=== PATIENT | female | born 1965 | race African-American/Black ===

== ENCOUNTER 2022-11-21 21:09 | Inpatient (IN) | payer MEDICARE ==
[~2022-11-21] VITALS: Ht 165.1 cm; Wt 117.9 kg
[2022-11-21] MEDS ORDERED: ACETAMINOPHEN 325 MG TAB PO STA (21:13)
[2022-11-21] MEDS ORDERED: SODIUM CHLORIDE 0.9% 1000ML 1,000 ML IV SCH (21:15)
[2022-11-21] MEDS ORDERED: ACETAMINOPHEN 1000 MG/100 ML IV STA (21:26)
[2022-11-21 21:55] LABS: BASOPHILS # (AUTO) 0.1 (0.0-0.1); BASOPHILS % 0.6 % (0.0-1.0); EOSINOPHILS # (AUTO) 0.3 (0.0-0.4); EOSINOPHILS % 1.7 % (0.0-6.0); HEMATOCRIT 30.9 % (34.2-44.1); LYMPHOCYTES # (AUTO) 2.3 (1.0-3.2); LYMPHOCYTES % 13.6 % (18.0-39.1); MEAN CORPUSCULAR HGB CONC 35.6 g/dL (31-35); MEAN CORPUSCULAR VOLUME 84.2 fL (81-99); MONOCYTES # (AUTO) 1.1 (0.2-0.8); MONOCYTES % 6.5 % (4.4-11.3); NEUTROPHILS # (AUTO) 12.8 (2.1-6.9); NEUTROPHILS % 77.2 % (38.7-80.0); PLATELET COUNT 243 x10e3/uL (140-360); RED BLOOD COUNT 3.67 x10e6/uL (3.6-5.1); RED CELL DISTRIBUTION WIDTH 13.6 % (11.7-14.4)
[2022-11-21] MEDS ORDERED: SODIUM CHLORIDE 0.9% 1000ML 1,000 ML IV ONE (22:00)
[2022-11-21 22:04] LABS: ALANINE AMINOTRANSFERASE 55 IU/L (0-55); ALBUMIN 3.1 g/dL (3.5-5.0); ALBUMIN/GLOBULIN RATIO 0.8 (0.8-2.0); ALKALINE PHOSPHATASE 200 IU/L (40-150); ANION GAP 15.1 mmol/L (8-16); BLOOD UREA NITROGEN 23 mg/dL (7-26); BUN/CREATININE RATIO 25 (6-25); CALCIUM 8.5 mg/dL (8.4-10.2); CARBON DIOXIDE 22 mmol/L (22-29); CHLORIDE 108 mmol/L (98-107); CREATINE KINASE 135 IU/L (29-168); CREATININE, SERUM 0.91 mg/dL (0.57-1.11); GLUCOSE 124 mg/dL (74-118); POTASSIUM 4.1 mmol/L (3.5-5.1); SODIUM 141 mmol/L (136-145)
[2022-11-21] MEDS ORDERED: ONDANSETRON HCL INJ 2MG/ML 2ML 2 MG/ML VIAL IV PRN (22:15)
[2022-11-21] MEDS ORDERED: Morphine 4mg INJECTION 4 MG/ML INJ IV PRN (22:15)
[2022-11-21] MEDS: SODIUM CHLORIDE 0.9% 1000ML 1,000 ML IV SCH (23:56)
[2022-11-22] VITALS (8 sets, daily range): BP systolic 110–157; BP diastolic 72–97
[2022-11-22] MEDS: SODIUM CHLORIDE 0.9% 1000ML 1,000 ML IV SCH ×2 (04:50→16:17)
[2022-11-22] MEDS ORDERED: NIFEDIPINE ER90 MG PO (05:09)
[2022-11-22] MEDS ORDERED: DULOXETINE HCL30 MG PO (05:09)
[2022-11-22] MEDS ORDERED: CLONIDINE HCL0.3 MG PO (05:09)
[2022-11-22] MEDS ORDERED: MONTELUKAST SOD10 MG PO (05:09)
[2022-11-22] MEDS ORDERED: ZOLPIDEM (05:09)
[2022-11-22] MEDS ORDERED: HYDROXYZINE HCL50 MG PO (05:09)
[2022-11-22] MEDS ORDERED: CLOPIDOGREL75 MG PO (05:09)
[2022-11-22] MEDS ORDERED: FUROSEMIDE40 MG PO (05:09)
[2022-11-22] MEDS ORDERED: BUSPIRONE HCL10 MG PO (05:09)
[2022-11-22] MEDS ORDERED: LEVOTHYROXINE100 MCG PO (05:09)
[2022-11-22 06:08] LABS: BASOPHILS # (AUTO) 0.1 (0.0-0.1); BASOPHILS % 0.5 % (0.0-1.0); EOSINOPHILS # (AUTO) 0.2 (0.0-0.4); EOSINOPHILS % 1.3 % (0.0-6.0); HEMOGLOBIN 9.4 g/dL (12.0-16.0); LYMPHOCYTES # (AUTO) 3.5 (1.0-3.2); LYMPHOCYTES % 25.7 % (18.0-39.1); MEAN CORPUSCULAR HEMOGLOBIN 29.7 pg (28-32); MEAN CORPUSCULAR HGB CONC 36.2 g/dL (31-35); MEAN CORPUSCULAR VOLUME 82.3 fL (81-99); MONOCYTES # (AUTO) 0.9 (0.2-0.8); MONOCYTES % 6.5 % (4.4-11.3); NEUTROPHILS % 65.8 % (38.7-80.0); PLATELET COUNT 176 x10e3/uL (140-360); RED BLOOD COUNT 3.16 x10e6/uL (3.6-5.1); RED CELL DISTRIBUTION WIDTH 13.9 % (11.7-14.4)
[2022-11-22 06:39] LABS: ALBUMIN 2.4 g/dL (3.5-5.0); ALBUMIN/GLOBULIN RATIO 0.7 (0.8-2.0); ANION GAP 10.9 mmol/L (8-16); CALCIUM 7.9 mg/dL (8.4-10.2); CREATININE, SERUM 0.86 mg/dL (0.57-1.11); POTASSIUM 3.9 mmol/L (3.5-5.1)
[2022-11-22 07:53] LABS: CREATINE KINASE 133 IU/L (29-168)
[2022-11-22 08:35] LABS: CHOL/HDL RATIO 3.1 (3.0-3.6)
[2022-11-22] MEDS ORDERED: INSULIN GLARGINE 100 UNITS/ML VIAL SQ SCH ×2 (11:30→20:00)
[2022-11-22] MEDS ORDERED: INSULIN LISPRO 100 UNIT/1 ML 3ML VIAL SQ SCH (11:30)
[2022-11-22] MEDS: NIFEDIPINE CR 30 MG TAB PO SCH (12:00)
[2022-11-22] MEDS: MONTELUKAST SODIUM 10 MG TAB PO SCH (13:06)
[2022-11-22] MEDS: CLOPIDOGREL BISULFATE 75 MG TAB PO SCH (13:06)
[2022-11-22] MEDS: FUROSEMIDE 40 MG TAB PO SCH (13:06)
[2022-11-22] MEDS: DULOXETINE HCL 30 MG DELAYED RELEASE PO SCH (13:06)
[2022-11-22 14:23] LABS: CREATINE KINASE 134 IU/L (29-168)
[2022-11-22] MEDS ORDERED: DOCUSATE SODIUM 100 MG CAP PO PRN (15:30)
[2022-11-22] MEDS ORDERED: SIMETHICONE 80 MG CHEW PO PRN (15:30)
[2022-11-22] MEDS ORDERED: MELATONIN 3 MG TAB PO PRN (15:30)
[2022-11-22] MEDS: CLONIDINE HCL 0.3 MG TAB PO SCH (17:00)
[2022-11-22] MEDS ORDERED: NICOTINE 21 MG/EA PATCH TOP PRN (17:15)
[2022-11-22] MEDS: ENOXAPARIN SOD INJ 40 MG/0.4 ML SYR SC SCH (17:20)
[2022-11-23] VITALS (8 sets, daily range): BP systolic 139–175; BP diastolic 84–101
[2022-11-23] MEDS: SODIUM CHLORIDE 0.9% 1000ML 1,000 ML IV SCH ×4 (02:00→22:00)
[2022-11-23] MEDS: LEVOTHYROXINE SODIUM 100 MCG TAB PO SCH (05:20)
[2022-11-23] MEDS: NICOTINE 21 MG/EA PATCH TOP SCH (08:27)
[2022-11-23] MEDS: CLONIDINE HCL 0.3 MG TAB PO SCH ×2 (08:28→16:27)
[2022-11-23] MEDS: MONTELUKAST SODIUM 10 MG TAB PO SCH (08:28)
[2022-11-23] MEDS: FUROSEMIDE 40 MG TAB PO SCH (08:28)
[2022-11-23] MEDS: DULOXETINE HCL 30 MG DELAYED RELEASE PO SCH (08:28)
[2022-11-23] MEDS: NIFEDIPINE CR 30 MG TAB PO SCH (08:29)
[2022-11-23] MEDS: CLOPIDOGREL BISULFATE 75 MG TAB PO SCH (08:35)
[2022-11-23] MEDS ORDERED: INSULIN GLARGINE 100 UNITS/ML VIAL SQ SCH (09:00)
[2022-11-23 09:06] LABS: BASOPHILS # (AUTO) 0.1 (0.0-0.1); BASOPHILS % 0.6 % (0.0-1.0); EOSINOPHILS # (AUTO) 0.2 (0.0-0.4); EOSINOPHILS % 1.5 % (0.0-6.0); HEMATOCRIT 31.5 % (34.2-44.1); HEMOGLOBIN 11.4 g/dL (12.0-16.0); LYMPHOCYTES % 19.4 % (18.0-39.1); MEAN CORPUSCULAR HEMOGLOBIN 29.7 pg (28-32); MEAN CORPUSCULAR HGB CONC 36.2 g/dL (31-35); MONOCYTES # (AUTO) 0.8 (0.2-0.8); MONOCYTES % 8.1 % (4.4-11.3); NEUTROPHILS # (AUTO) 7.3 (2.1-6.9); PLATELET COUNT 207 x10e3/uL (140-360); RED BLOOD COUNT 3.84 x10e6/uL (3.6-5.1)
[2022-11-23 09:29] LABS: ANION GAP 13.7 mmol/L (8-16); CALCIUM 8.6 mg/dL (8.4-10.2); CREATININE, SERUM 0.69 mg/dL (0.57-1.11); POTASSIUM 3.7 mmol/L (3.5-5.1)
[2022-11-23 12:01] LABS: CREATINE KINASE 119 IU/L (29-168)
[2022-11-23] MEDS ORDERED: INSULIN GLARGINE 100 UNITS/ML VIAL SQ ONE (13:30)
[2022-11-23] MEDS: INSULIN LISPRO 100 UNIT/1 ML 3ML VIAL SQ SCH ×2 (16:47→22:11)
[2022-11-23] MEDS: ENOXAPARIN SOD INJ 40 MG/0.4 ML SYR SC SCH (17:01)
[2022-11-24 00:57] VITALS: BP 156/94
[2022-11-24 03:27] VITALS: BP 156/94
[2022-11-24 04:00] VITALS: BP 130/84
[2022-11-24 06:06] LABS: BASOPHILS # (AUTO) 0.1 (0.0-0.1); BASOPHILS % 0.7 % (0.0-1.0); EOSINOPHILS # (AUTO) 0.3 (0.0-0.4); EOSINOPHILS % 3.2 % (0.0-6.0); HEMATOCRIT 34.1 % (34.2-44.1); LYMPHOCYTES # (AUTO) 3.7 (1.0-3.2); MEAN CORPUSCULAR HEMOGLOBIN 29.6 pg (28-32); MEAN CORPUSCULAR HGB CONC 35.2 g/dL (31-35); MEAN CORPUSCULAR VOLUME 84.2 fL (81-99); MONOCYTES # (AUTO) 0.9 (0.2-0.8); MONOCYTES % 9.5 % (4.4-11.3); NEUTROPHILS # (AUTO) 4.7 (2.1-6.9); NEUTROPHILS % 48.2 % (38.7-80.0); PLATELET COUNT 224 x10e3/uL (140-360); RED BLOOD COUNT 4.05 x10e6/uL (3.6-5.1); RED CELL DISTRIBUTION WIDTH 13.4 % (11.7-14.4)
[2022-11-24] MEDS: LEVOTHYROXINE SODIUM 100 MCG TAB PO SCH (06:22)
[2022-11-24] MEDS: SODIUM CHLORIDE 0.9% 1000ML 1,000 ML IV SCH (06:23)
[2022-11-24 07:11] LABS: ANION GAP 14.6 mmol/L (8-16); CALCIUM 8.8 mg/dL (8.4-10.2); CREATININE, SERUM 0.63 mg/dL (0.57-1.11); POTASSIUM 3.6 mmol/L (3.5-5.1)
[2022-11-24] MEDS ORDERED: CEPHALEXIN500 MG PO (08:51)
[2022-11-24] MEDS ORDERED: ZITHROMAX500 MG PO (08:51)
[2022-11-24] MEDS ORDERED: NICODERM CQ1 EAC2 TOP (08:51)
[2022-11-24] MEDS ORDERED: INSULIN GLARGINE 100 UNITS/ML VIAL SQ SCH (09:00)
[2022-11-24 09:10] VITALS: BP 153/94
[2022-11-24 09:13] VITALS: BP 153/94
[2022-11-24] MEDS: FUROSEMIDE 40 MG TAB PO SCH (09:45)
[2022-11-24] MEDS: CLONIDINE HCL 0.3 MG TAB PO SCH (09:45)
[2022-11-24] MEDS: DULOXETINE HCL 30 MG DELAYED RELEASE PO SCH (09:45)
[2022-11-24] MEDS: NICOTINE 21 MG/EA PATCH TOP SCH (09:45)
[2022-11-24] MEDS: NIFEDIPINE CR 30 MG TAB PO SCH (09:46)
[2022-11-24] MEDS: MONTELUKAST SODIUM 10 MG TAB PO SCH (09:46)
[2022-11-24] MEDS: CLOPIDOGREL BISULFATE 75 MG TAB PO SCH (09:46)
[2022-11-24] MEDS: INSULIN LISPRO 100 UNIT/1 ML 3ML VIAL SQ SCH (09:56)
[2022-11-24] MEDS ORDERED: ONDANSETRON HCL 4 MG ORAL DISINTEGRATING TAB PO PRN (11:30)
[2022-11-25] MEDS ORDERED: AZITHROMYCIN 250 MG TAB PO SCH (08:00)
== END 2022-11-24 11:40 | disposition home or self-care (01) | DRG 871 ==
LOC: ER 21:12 → ERHOLD 22:12 → MED/SURG2 23:23
PROVIDERS: ADMIT Internal Medicine; ATTEND Internal Medicine
DX: A41.9 Sepsis, unspecified organism (principal); J18.9 Pneumonia, unspecified organism; R74.01 Elevation of levels of liver transaminase levels; F17.210 Nicotine dependence, cigarettes, uncomplicated; I25.10 Atherosclerotic heart disease of native coronary artery without angina pectoris; Z95.5 Presence of coronary angioplasty implant and graft; Z86.73 Personal history of transient ischemic attack (TIA), and cerebral infarction without residual deficits; E03.9 Hypothyroidism, unspecified; I11.9 Hypertensive heart disease without heart failure; Z20.822 Contact with and (suspected) exposure to COVID-19; Z89.422 Acquired absence of other left toe(s)
CPT/HCPCS: 36415; 71045; 80048; 80053; 80061; 82550; 82553; 82948; 83036; 83605; 83690; 83880; 84484; 85025; 87040; 93005; 94799; 99284; J1650; J1815; J2543; J7030; J7050